=== PATIENT | female | born 1995 | race African-American/Black ===

== ENCOUNTER 2016-11-03 13:56 | Emergency (ER) | payer OTHER ==
[~2016-11-03] VITALS: Ht 157.5 cm; Wt 52.5 kg
[2016-11-03 13:57] VITALS: BP 118/59; PULSE 64; RESP 16; TEMP 98.3; O2SAT 97
[2016-11-03] MEDS ORDERED: IBUPROFEN 600 MG TAB PO ONE (15:00)
[2016-11-03] MEDS ORDERED: METHOCARBAMOL 500 MG TAB PO ONE (15:00)
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
[2016-11-03] MEDS ORDERED: ROBA750T PO (16:17)
[2016-11-03] MEDS ORDERED: IBUP800T23 PO (16:17)
== END 2016-11-03 16:38 | disposition home or self-care (01) ==
LOC: NEPB 13:56
DX: M54.6 Pain in thoracic spine (principal); M54.5 Low back pain; V49.88XA Car occupant (driver) (passenger) injured in other specified transport accidents, initial encounter; Y92.410 Unspecified street and highway as the place of occurrence of the external cause
CPT/HCPCS: 72072; 72100; 99284

== ENCOUNTER 2017-04-12 15:44 | Emergency (ER) | payer SELFPAY ==
[~2017-04-12] VITALS: Ht 157.5 cm; Wt 53.0 kg
[~2017-04-12 15:44] MED LIST: IBUP800T23 PO; ROBA750T PO
[2017-04-12 15:47] VITALS: BP 149/79; PULSE 76; RESP 18; TEMP 98.8
--- NOTE | 2017-04-12 16:02 | PD ---
Physical Exam Date Seen by Provider: Apr 12, 2017 Time Seen by Provider: 16:00 Narrative 21 yr old female here with c/o vaginal bleeding. She says she is soaking through one pantyliner an hour. She is awaiting bed placement. Data Data Last Documented VS Vital Signs Date Time Temp Pulse Resp B/P (MAP) Pulse Ox O2 Delivery O2 Flow Rate FiO2 04/12/17 15:47 98.8 76 18 149/79 (102) MDM Medical Record Reviewed: Yes Supervised Visit with HANANE: No Condition: Stable Marian Cuello Apr 12, 2017 16:01
--- NOTE | 2017-04-12 20:19 | PD ---
HPI . 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 I actually saw this patient at [facility] on Saturday of this week. At that time patient was reporting very mild spotting. test was negative. Today she is complaining of similar. She tells me she goes through about one panty liner every hour. While in the emergency room triage, where I saw the patient for the first time today she reported that she did pass some clots. She admits to protect the sexual activity. She denies any other vaginal discharge or symptoms. She has no abdominal pain or urinary complaints. PFSH Past Medical History Hx Anticoagulant Therapy: No Cardiovascular Problems: No Chemotherapy: No Cerebrovascular Accident: No Diabetes: No Respiratory: Yes (ASTHMA) ?: Not Social History Alcohol Use: No Tobacco Use: No Substance Use: No Allergies-Medications (Allergen,Severity, Reaction): Coded Allergies: No Known Allergies (Unverified , 04/12/17) Reported Meds & Prescriptions Reported Meds & Active Scripts Active No Active Prescriptions or Reported Medications Review of Systems General / Constitutional: No: Fever Eyes: No: Visual changes HENT: No: Headaches Cardiovascular: No: Chest Pain or Discomfort Respiratory: No: Shortness of Breath Gastrointestinal: No: Abdominal Pain Genitourinary: Positive: Vaginal Bleeding, No: Dysuria Musculoskeletal: No: Pain Skin: No Rash Neurologic: No: Weakness Psychiatric: No: Depression Endocrine: No: Polydipsia Hematologic/Lymphatic: No: Easy Bruising Physical Exam Narrative GENERAL: AAO x 3, no acute distress, Well-nourished, well-developed patient. SKIN: Warm and dry. No visible rashes or bruising. HEAD: Normocephalic and atraumatic. EYES: No scleral icterus. No injection or drainage. ENT: No nasal drainage noted. Mucous membranes pink. Airway patent. NECK: Supple, trachea midline. No JVD. CARDIOVASCULAR: Regular rate and rhythm without murmurs, gallops, or rubs. RESPIRATORY: Breath sounds equal bilaterally. No accessory muscle use. No rhonchi or rales. GASTROINTESTINAL: Abdomen soft, non-tender, nondistended. no rebound or guarding PELVIC: + mild vaginal bleeding from cervical os, no discharge appreciated; no chandelier sign EXTREMITIES: No cyanosis or edema. BACK: No obvious deformity. No CVA tenderness. NEURO: CN II-12 intact, PSYCH: AAO x 3, normal affect. Data Data Last Documented VS Vital Signs Date Time Temp Pulse Resp B/P (MAP) Pulse Ox O2 Delivery O2 Flow Rate FiO2 04/12/17 20:30 65 18 116/78 (91) 100 Room Air 04/12/17 15:47 98.8 Orders Orders Complete Blood Count With Diff (04/12/17 16:04) Basic Metabolic Panel (Bmp) (04/12/17 16:04) Urinalysis - C+S If Indicated (04/12/17 16:04) Ed Urine Pregnancytest Poc (04/12/17 16:04) Gc And Chlamydia Pcr (04/12/17 20:19) Wet Prep Profile (04/12/17 20:19) MDM Medical Decision Making Medical Screen Exam Complete: Yes Emergency Medical Condition: Yes Medical Record Reviewed: Yes Differential Diagnosis menorrhagia, STD, UTI, less likely miscarriage Narrative Course 21 yr old female here with c/o vaginal bleeding since last week. Labs were ordered including urine , UA and CBC and BMP. Pelvic exam with some mild vaginal bleeding at the cervical os. No discharge seen. Case has been discussed with Dr. Isaac. She will disposition this patient. Scripts No Active Prescriptions or Reported Meds Condition: Stable Marian Cuello Apr 12, 2017 20:19
[2017-04-12 20:30] VITALS: BP 116/78; PULSE 65; RESP 18; O2SAT 100
[2017-04-12 21:16] LABS: BACTERIA, URINE RARE /hpf; BLOOD, URINE LARGE (NEG); COMMENT (UR) CULT NOT INDICATED; CULTURE IF INDICATED CULT NOT INDICATED; GLUCOSE,URINE NEG (NEG); KETONE, URINE NEG (NEG); MUCUS URINE FEW /lpf (OCC); NITRITE,URINE NEG (NEG); SQUAMOUS EPITHELIAL CELL URINE 1 /hpf (0-5); URINE COLOR YELLOW (YELLW/STRAW)
[2017-04-12 21:31] LABS: AUTOMATED NEUTROPHIL # 3.2 TH/MM3 (1.8-7.7); BASOPHIL # 0.1 TH/MM3 (0-0.2); BASOPHIL % 1.2 % (0.0-2.0); EOSINOPHIL # 0.1 TH/MM3 (0-0.4); EOSINOPHIL % 1.4 % (0.0-4.0); HEMATOCRIT 46.1 % (35.0-46.0); LYMPHOCYTE # 2.8 TH/MM3 (1.0-4.8); MEAN CELL VOLUME 86.3 FL (80.0-100.0); MEAN CORPUSCULAR HEMOGLOBIN 28.3 PG (27.0-34.0); MEAN CORPUSCULAR HGB CONC 32.8 % (32.0-36.0); MONO % 6.7 % (0.0-8.0); NEUT % 48.7 % (16.0-70.0); PLATELET COUNT 121 TH/MM3 (150-450); RED BLOOD COUNT 5.34 MIL/MM3 (4.00-5.30); RED CELL DISTRIBUTION WIDTH 13.7 % (11.6-17.2); WHITE BLOOD COUNT 6.6 TH/MM3 (4.0-11.0)
[2017-04-12 21:32] LABS: BICARBONATE 26.9 MEQ/L (21.0-32.0); POTASSIUM 3.5 MEQ/L (3.5-5.1)
[2017-04-12 21:54] LABS: HEMO FLAGS AUTO DIFF
[2017-04-12 22:12] LABS: PLATELET ESTIMATE SMEAR LOW (NORMAL); PLATELET MORPHOLOGY ENLARGED (NORMAL); SCAN/DIFF AUTO DIFF CONFIRMED
--- NOTE | 2017-04-12 22:37 | PD ---
Physical Exam Date Seen by Provider: Apr 12, 2017 Time Seen by Provider: 22:35 Narrative Patient came to the emergency room for vaginal bleeding. She was seen by the PA. Please refer to her notes for further details. Her blood test and UA was pending when the PA left and signed the case over to me. These results of come back and within acceptable limits. I'm going to discharge the patient home. I have instructed her to stop taking her oral contraceptives for a week and restart again. I've also asked her to follow up with her HISTOLOGY MANAGER. Data Data Last Documented VS Vital Signs Date Time Temp Pulse Resp B/P (MAP) Pulse Ox O2 Delivery O2 Flow Rate FiO2 04/12/17 22:52 04/12/17 20:30 65 18 100 Room Air 04/12/17 15:47 98.8 Orders Orders Complete Blood Count With Diff (04/12/17 16:04) Basic Metabolic Panel (Bmp) (04/12/17 16:04) Urinalysis - C+S If Indicated (04/12/17 16:04) Ed Urine Pregnancytest Poc (04/12/17 16:04) Gc And Chlamydia Pcr (04/12/17 20:19) Wet Prep Profile (04/12/17 20:19) Labs Laboratory Tests Test 04/12/17 20:30 White Blood Count 6.6 TH/MM3 Red Blood Count 5.34 MIL/MM3 Hemoglobin 15.1 GM/DL Hematocrit 46.1 % Mean Corpuscular Volume 86.3 FL Mean Corpuscular Hemoglobin 28.3 PG Mean Corpuscular Hemoglobin Concent 32.8 % Red Cell Distribution Width 13.7 % Platelet Count 121 TH/MM3 Mean Platelet Volume 12.7 FL Neutrophils (%) (Auto) 48.7 % Lymphocytes (%) (Auto) 42.0 % Monocytes (%) (Auto) 6.7 % Eosinophils (%) (Auto) 1.4 % Basophils (%) (Auto) 1.2 % Neutrophils # (Auto) 3.2 TH/MM3 Lymphocytes # (Auto) 2.8 TH/MM3 Monocytes # (Auto) 0.4 TH/MM3 Eosinophils # (Auto) 0.1 TH/MM3 Basophils # (Auto) 0.1 TH/MM3 CBC Comment AUTO DIFF Differential Comment AUTO DIFF CONFIRMED Platelet Estimate LOW Platelet Morphology Comment ENLARGED Urine Color YELLOW Urine Turbidity CLEAR Urine pH 7.0 Urine Specific Phillips 1.019 Urine Protein TRACE mg/dL Urine Glucose (UA) NEG mg/dL Urine Ketones NEG mg/dL Urine Occult Blood LARGE Urine Nitrite NEG Urine Bilirubin NEG Urine Urobilinogen 2.0 MG/DL Urine Leukocyte Esterase NEG Urine RBC 80 /hpf Urine WBC 2 /hpf Urine Squamous Epithelial Cells 1 /hpf Urine Bacteria RARE /hpf Urine Mucus FEW /lpf Microscopic Urinalysis Comment CULT NOT INDICATED Clue Cells (Wet Prep) NONE SEEN Vaginal Trichomonas (Wet Prep) NONE SEEN Vaginal Yeast (Wet Prep) NONE SEEN Blood Urea Nitrogen 5 MG/DL Creatinine 0.76 MG/DL Random Glucose 105 MG/DL Calcium Level 9.3 MG/DL Sodium Level 139 MEQ/L Potassium Level 3.5 MEQ/L Chloride Level 105 MEQ/L Carbon Dioxide Level 26.9 MEQ/L Anion Gap 7 MEQ/L Estimat Glomerular Filtration Rate 116 ML/MIN Chlamydia trachomatis DNA (PCR) NOT DETECTED Neisseria gonorrhoeae DNA (PCR) NOT DETECTED MDM Supervised Visit with HANANE: Yes Diagnosis Primary Impression: Vagina bleeding Referrals: Primary Care Physician Additional Instruction: Please return to the ER if the condition worsens. Stop taking your oral contraceptives and then restarted a week. You should not be smoking lately on oral contraceptive. Follow-up with your HISTOLOGY MANAGER. Med/Other Pt SpecificInfo: No Change to Meds Scripts No Active Prescriptions or Reported Meds Disposition: 01 DISCHARGE HOME Condition: Stable Flaca Isaac MD Apr 12, 2017 22:37
[2017-04-12 23:59] LABS: CHLAMYDIA PCR NOT DETECTED (NOT DETECT); NEISSERIA PCR NOT DETECTED (NOT DETECT)
== END 2017-04-12 23:03 | disposition home or self-care (01) ==
LOC: NEPD 15:44
DX: N93.9 Abnormal uterine and vaginal bleeding, unspecified (principal); Z87.09 Personal history of other diseases of the respiratory system
CPT/HCPCS: 80048; 81001; 84703; 85025; 87210; 87491; 87591; 99284